=== PATIENT | female | born 1950 | race Caucasian/White ===

== ENCOUNTER → 2018-01-16 | Outpatient (CLI) | payer MEDICARE ==
[~2018-01-16] MED LIST: ASP81; ASPI-1471 PO; ATOR10TA24 PO; CALC500T6 PO; CALC600T72; LISI-362 PO; MULT-1335 PO; MULT1CAP59
--- NOTE | 2018-01-16 16:12 | RADIOLOGY IMAGING REPORT ---
[place] [facility] [place] NAME: GABY MACHADO : [id number] MR: [id number] V: [id number] EXAM DATE: [id number] ORDERING PHYSICIAN: ENRIQUE HOROWITZ TECHNOLOGIST: May Jacobson PROCEDURE:BILATERAL DIGITAL SCREENING MAMMOGRAM WITH CAD ASSISTED INTERPRETATION & 3D TOMOSYNTHESIS COMPARISON:Prior mammograms 01/12/17, 12/26/15. INDICATIONS:SCREENING FINDINGS: There is scattered to heterogeneous fibroglandular tissue. No suspicious mass, microcalcification or architectural distortion. No change compared to priors. DIAGNOSTIC CATEGORY 1--NEGATIVE. RECOMMENDATIONS: ROUTINE MAMMOGRAM AND CLINICAL EVALUATION. IMPRESSION: BIRADS 1: Negative. Dictated by: Jacob Ladd on 01/16/2018 at 13:48 Transcribed by: NAOMI on 01/16/2018 at 13:53 Approved by: Jacob Ladd on 01/16/2018 at 16:11 [facility]
== END ==
LOC: MAMO 01:26
PROVIDERS: ATTEND Nurse Practitioner Family
DX: Z12.31 Encounter for screening mammogram for malignant neoplasm of breast (principal)
CPT/HCPCS: 77063; 77067